=== PATIENT | female | born 1980 | race Caucasian/White ===

== ENCOUNTER → 2017-01-31 | Outpatient (CLI) | payer OTHER ==
[2017-01-31 07:41] LABS: ALT 32 U/L (9-52); AST 22 U/L (14-36); Alkaline Phosphatase 41 U/L (38-126); Anion Gap 11 mmol/L; Blood Urea Nitrogen 12 mg/dL (7-17); Calcium 9.2 mg/dL (8.4-10.2); Carbon Dioxide 25 mmol/L (22-30); Chloride 105 mmol/L (98-107); Cholesterol 174 mg/dL (<200); Creatine Kinase 106 U/L (30-135); Glucose 110 mg/dL (74-99); HDL Cholesterol 37 mg/dL (40-60); Non-African American GFR(MDRD) >60 (>60 ml/min/1.73 sqM); Potassium 4.4 mmol/L (3.5-5.1); Sodium 141 mmol/L (137-145); Total Bilirubin 0.7 mg/dL (0.2-1.3); Total Protein 7.3 g/dL (6.3-8.2); Triglycerides 93 mg/dL (<150)
[2017-01-31 08:51] LABS: Basophils # (A) 0.1 k/uL (0-0.2); Basophils % (A) 1 %; CH 28.9; CHCM 34.5; Eosinophils # (A) 0.1 k/uL (0-0.7); Eosinophils % (A) 2 %; HCT 37.6 % (34.0-46.0); HDW 2.67; HGB 13.3 gm/dL (11.4-16.0); Luc # (Auto) 0.16; Luc % (Auto) 3; Lymphocytes % (A) 16 %; MCH 29.7 pg (25.0-35.0); MCHC 35.3 g/dL (31.0-37.0); MCV 84.1 fL (80.0-100.0); Mean Platelet Volume 7.3; Monocytes # (A) 0.7 k/uL (0-1.0); Monocytes % (A) 11 %; Neutrophils # (A) 4.2 k/uL (1.3-7.7); Neutrophils % (A) 67 %; RBC 4.48 m/uL (3.80-5.40); RDW 13.3 % (11.5-15.5); WBC 6.3 k/uL (3.8-10.6); WBC (Perox) 5.16
[2017-01-31 09:37] LABS: C Reactive Protein 6.2 mg/L (<10.0)
[2017-01-31 10:07] LABS: Erythrocyte Sedimentation Rate 13 mm/hr (0-20)
[2017-01-31 10:51] LABS: Manual Review Performed
[2017-01-31 10:53] LABS: RBC Morphology Normal
== END ==
LOC: LABWHC1 07:06
PROVIDERS: ATTEND Internal Medicine
DX: D64.9 Anemia, unspecified (principal); E78.5 Hyperlipidemia, unspecified
CPT/HCPCS: 36415; 80053; 80061; 82550; 85025; 85652; 86140

== ENCOUNTER → 2017-02-14 | Outpatient (CLI) | payer OTHER ==
--- NOTE | 2017-02-14 11:21 | MM ---
Reason for exam: clinical finding. Baseline mammogram. History: Family history of breast cancer in paternal grandmother. Indicated problem(s): lump or thickening in both breasts. Physical Findings: Nurse did not find any significant physical abnormalities on exam. MG Diagnostic Mammo w CAD DOUGLAS Bilateral CC and MLO view(s) were taken. The breast tissue is heterogeneously dense. This may lower the sensitivity of mammography. No suspicious calcifications or masses. There is no discrete abnormality including area of concern. These results were verbally communicated with the patient and result sheet given to the patient on 02/14/17. ASSESSMENT: Benign, BI-RAD 2 RECOMMENDATION: Routine screening mammogram of both breasts at age 38. Back on schedule. Manage patient on a clinical basis.
== END | disposition home or self-care (01) ==
LOC: RADMAMWWP 10:03
PROVIDERS: ATTEND Internal Medicine
DX: N64.59 Other signs and symptoms in breast (principal)

== ENCOUNTER → 2018-03-04 | Outpatient (CLI) | payer OTHER ==
--- NOTE | 2018-03-04 09:49 | XR ---
EXAMINATION TYPE: XR foot complete LT DATE OF EXAM: 03/04/2018 COMPARISON: NONE HISTORY: Pain in the heel TECHNIQUE: Three views are submitted. FINDINGS: The osseous structures are . There is no acute fracture or dislocation. Arthropathy of the first MT P joint. Hypertrophic change and narrowing of the space noted. No sizable calcaneal spur. IMPRESSION: 1. No acute osseous abnormality.
== END | disposition home or self-care (01) ==
LOC: RADXRMAIN 09:11
PROVIDERS: ATTEND Internal Medicine
DX: M72.2 Plantar fascial fibromatosis (principal)

== ENCOUNTER → 2018-06-24 | Outpatient (CLI) | payer OTHER ==
[2018-06-24 09:11] LABS: Basophils % (A) 1 %; Eosinophils # (A) 0.1 k/uL (0-0.7); Eosinophils % (A) 3 %; HCT 40.6 % (34.0-46.0); Lymphocytes # (A) 0.8 k/uL (1.0-4.8); Lymphocytes % (A) 15 %; MCH 27.7 pg (25.0-35.0); MCHC 31.9 g/dL (31.0-37.0); MCV 86.8 fL (80.0-100.0); Mean Platelet Volume 6.5; Monocytes # (A) 0.3 k/uL (0-1.0); Monocytes % (A) 6 %; Neutrophils # (A) 3.8 k/uL (1.3-7.7); Neutrophils % (A) 72 %; Platelet Count 245 k/uL (150-450); RBC 4.68 m/uL (3.80-5.40); WBC 5.2 k/uL (3.8-10.6)
[2018-06-24 09:32] LABS: ALT 54 U/L (9-52); AST 31 U/L (14-36); Albumin 4.1 g/dL (3.5-5.0); Alkaline Phosphatase 38 U/L (38-126); Anion Gap 9 mmol/L; Blood Urea Nitrogen 13 mg/dL (7-17); C Reactive Protein 5.7 mg/L (<10.0); Carbon Dioxide 26 mmol/L (22-30); Chloride 105 mmol/L (98-107); Cholesterol 192 mg/dL (<200); Creatine Kinase 86 U/L (30-135); Glucose 109 mg/dL (74-99); HDL Cholesterol 38 mg/dL (40-60); LDL Cholesterol,Calculated 138 mg/dL (0-99); Phosphorus 2.8 mg/dL (2.5-4.5); Potassium 4.5 mmol/L (3.5-5.1); Sodium 140 mmol/L (137-145); Total Bilirubin 0.5 mg/dL (0.2-1.3); Total Protein 6.9 g/dL (6.3-8.2); Triglycerides 78 mg/dL (<150); Uric Acid 4.9 mg/dL (3.7-7.4)
[2018-06-24 12:34] LABS: Erythrocyte Sedimentation Rate 12 mm/hr (0-20)
[2018-06-24 17:18] LABS: Iron Saturation 22.22 (12.00-45.00)
[2018-06-24 17:29] LABS: Vitamin D 25 Hydroxy 40.2 ng/mL (30.0-100.0)
[2018-06-24 18:34] LABS: Hemoglobin A1C 5.4 % (4.0-6.0)
== END | disposition home or self-care (01) ==
LOC: LABWHC1 08:16
PROVIDERS: ATTEND Internal Medicine
DX: L60.3 Nail dystrophy (principal)
CPT/HCPCS: 36415; 80053; 80061; 82306; 82550; 82728; 83036; 83540; 83550; 83735; 84100; 84550; 84630; 85025; 85652; 86140

== ENCOUNTER → 2018-07-08 | Outpatient (CLI) | payer OTHER ==
--- NOTE | 2018-07-08 12:27 | XR ---
EXAMINATION TYPE: XR chest 2V DATE OF EXAM: 07/08/2018 COMPARISON: NONE TECHNIQUE: PA and lateral views submitted. HISTORY: Cough FINDINGS: The lungs are clear and there is no pneumothorax, pleural effusion, or focal pneumonia. IMPRESSION: 1. No acute process.
== END | disposition home or self-care (01) ==
LOC: RADXRMAIN 11:56
PROVIDERS: ATTEND Internal Medicine
DX: R05 Cough (principal)
CPT/HCPCS: 71046

== ENCOUNTER → 2018-09-16 | Outpatient (CLI) | payer OTHER ==
[2018-09-16 16:12] LABS: ALT 39 U/L (8-44); AST 29 U/L (13-35); Cholesterol 119 mg/dL (0-200); Creatine Kinase 132 U/L (26-186); Triglycerides <50.0 mg/dL (0.0-149.0); VLDL Calculation 9.98 mg/dL (5.00-40.00)
== END ==
LOC: LABWHC1 08:08
PROVIDERS: ATTEND Internal Medicine
DX: E78.5 Hyperlipidemia, unspecified (principal)
CPT/HCPCS: 36415; 80061; 82550; 84450; 84460

== ENCOUNTER → 2019-03-03 | Outpatient (CLI) | payer OTHER ==
[2019-03-03 07:56] LABS: Basophils % (A) 1 %; Eosinophils # (A) 0.2 k/uL (0-0.7); Eosinophils % (A) 4 %; HCT 39.5 % (34.0-46.0); HGB 13.3 gm/dL (11.4-16.0); Lymphocytes # (A) 0.9 k/uL (1.0-4.8); Lymphocytes % (A) 17 %; MCH 29.4 pg (25.0-35.0); MCHC 33.6 g/dL (31.0-37.0); MCV 87.4 fL (80.0-100.0); Mean Platelet Volume 7.1; Monocytes # (A) 0.3 k/uL (0-1.0); Monocytes % (A) 5 %; Neutrophils # (A) 3.6 k/uL (1.3-7.7); Neutrophils % (A) 69 %; Platelet Count 239 k/uL (150-450); RBC 4.52 m/uL (3.80-5.40); WBC 5.3 k/uL (3.8-10.6)
[2019-03-03 12:11] LABS: Erythrocyte Sedimentation Rate 14 mm/hr (0-20)
[2019-03-03 17:50] LABS: ALT 33 U/L (8-44); AST 24 U/L (13-35); Albumin/Globulin Ratio 2.32 (1.60-3.17); Alkaline Phosphatase 45 U/L (41-126); C Reactive Protein <0.4 mg/dL (0.0-0.8); Calcium 8.8 mg/dL (8.7-10.3); Carbon Dioxide 23.6 mmol/L (21.6-31.8); Chloride 107 mmol/L (96-109); Cholesterol 146 mg/dL (0-200); Creatine Kinase 126 U/L (26-186); Globulin 1.9 g/dL (1.6-3.3); Glucose 113 mg/dL (70-110); LDL Cholesterol,Calculated 88.4 mg/dL (0.0-131.0); Sodium 138 mmol/L (135-145); Total Bilirubin 0.5 mg/dL (0.3-1.2); Total Protein 6.3 g/dL (6.2-8.2)
== END | disposition home or self-care (01) ==
LOC: LABWHC1 07:21
PROVIDERS: ATTEND Internal Medicine
DX: E55.9 Vitamin D deficiency, unspecified (principal); E78.5 Hyperlipidemia, unspecified; E03.9 Hypothyroidism, unspecified
CPT/HCPCS: 36415; 80053; 80061; 82306; 82550; 84443; 85025; 85652; 86140

== ENCOUNTER → 2019-04-09 | Outpatient (CLI) | payer OTHER ==
--- NOTE | 2019-04-10 10:35 | MM ---
Reason for exam: screening (asymptomatic). Last mammogram was performed 2 years and 2 months ago. History: Patient is nulliparous. Family history of breast cancer in paternal grandmother. Physical Findings: A clinical breast exam by your physician is recommended on an annual basis and results should be correlated with mammographic findings. MG 3D Screening Mammo W/Cad Bilateral CC and MLO view(s) were taken. Prior study comparison: February 14, 2017, bilateral MG diagnostic mammo w CAD DOUGLAS. The breast tissue is heterogeneously dense. This may lower the sensitivity of mammography. Finding: There is a 8 mm obscured oval mass in the posterior middle position of the right breast on CC 44/62 and MLO 22/66. ASSESSMENT: Incomplete: need additional imaging evaluation, BI-RAD 0 RECOMMENDATION: Ultrasound of the right breast. [facility] will attempt to contact patient to return for ultrasound.
== END | disposition home or self-care (01) ==
LOC: RADMAMWWP 09:01
PROVIDERS: ATTEND Internal Medicine
DX: Z12.31 Encounter for screening mammogram for malignant neoplasm of breast (principal); Z80.3 Family history of malignant neoplasm of breast
CPT/HCPCS: 77063; 77067

== ENCOUNTER → 2019-08-04 | Outpatient (CLI) | payer OTHER ==
--- NOTE | 2019-08-04 11:42 | XR ---
EXAMINATION TYPE: XR knee complete LT DATE OF EXAM: 08/04/2019 CLINICAL HISTORY: Chronic medial pain. TECHNIQUE: Three views of the left knee are obtained. COMPARISON: None. FINDINGS: There is no acute fracture/dislocation evident in left knee. Axpn-kg-axxzadiw medial zara rtment narrowing with more mild narrowing patellofemoral and lateral tibiofemoral compartments. No s ignificant spurring. Clothing material overlies distal femoral diaphysis. IMPRESSION: As above
--- NOTE | 2019-08-04 11:48 | XR ---
EXAMINATION TYPE: XR tibia fibula LT DATE OF EXAM: 08/04/2019 CLINICAL HISTORY: Chronic pain. TECHNIQUE: Two views of the left leg are obtained. COMPARISON: C in the left knee x-ray.. FINDINGS: There is no acute fracture or dislocation seen in the left tibia or fibula. The left ankl e joint appears within normal limits. Overlying sock material at level of ankle is noted. IMPRESSION: As above.
== END | disposition home or self-care (01) ==
LOC: RADXRMAIN 10:28
PROVIDERS: ATTEND Internal Medicine
DX: M25.862 Other specified joint disorders, left knee (principal)

== ENCOUNTER → 2020-06-30 | Outpatient (CLI) | payer OTHER ==
[2020-06-30 08:22] LABS: Basophils % (A) 0 %; Eosinophils # (A) 0.2 k/uL (0-0.7); Eosinophils % (A) 3 %; HCT 40.7 % (34.0-46.0); HGB 13.3 gm/dL (11.4-16.0); Lymphocytes # (A) 0.9 k/uL (1.0-4.8); Lymphocytes % (A) 17 %; MCH 28.6 pg (25.0-35.0); MCHC 32.7 g/dL (31.0-37.0); MCV 87.5 fL (80.0-100.0); Mean Platelet Volume 7.2; Monocytes # (A) 0.4 k/uL (0-1.0); Monocytes % (A) 7 %; Neutrophils # (A) 3.9 k/uL (1.3-7.7); Neutrophils % (A) 70 %; Platelet Count 245 k/uL (150-450); RBC 4.64 m/uL (3.80-5.40); RDW 12.7 % (11.5-15.5); WBC 5.6 k/uL (3.8-10.6)
[2020-06-30 17:30] LABS: African American GFR (CKD) 131.2 (60.0-200.0); Albumin 4.2 g/dL (3.80-4.90); Albumin/Globulin Ratio 2.1 (1.60-3.17); Anion Gap 8.5 mmol/L (4.00-12.00); Calcium 8.8 mg/dL (8.7-10.3); Carbon Dioxide 24.5 mmol/L (21.6-31.8); Chol/HDL Ratio 3.68; LDL Cholesterol,Calculated 89.8 mg/dL (0.0-131.0); Non-African American GFR(CKD) 113.2 (60.0-200.0); Potassium 4.2 mmol/L (3.5-5.5); Total Bilirubin 0.3 mg/dL (0.2-1.2); Total Protein 6.2 g/dL (6.2-8.2); VLDL Calculation 17.2 mg/dL (5.00-40.00)
[2020-06-30 18:17] LABS: Erythrocyte Sedimentation Rate 9 mm/Hr (0-20)
== END | disposition home or self-care (01) ==
LOC: LABWHC1 07:12
PROVIDERS: ATTEND Internal Medicine
DX: Z00.00 Encounter for general adult medical examination without abnormal findings (principal); D64.9 Anemia, unspecified; E87.8 Other disorders of electrolyte and fluid balance, not elsewhere classified; E78.5 Hyperlipidemia, unspecified
CPT/HCPCS: 36415; 80053; 80061; 82550; 85025; 85652

== ENCOUNTER → 2020-08-02 | Outpatient (CLI) | payer OTHER ==
--- NOTE | 2020-08-03 07:30 | MM ---
Reason for exam: additional evaluation requested from prior study. Last mammogram was performed 1 year and 4 months ago. History: Patient is nulliparous. Family history of breast cancer in paternal grandmother. Took hormonal contraceptives for 2 years. Physical Findings: Nurse did not find any significant physical abnormalities on exam. MG Diagnostic Mammo w CAD DOUGLAS Bilateral CC and MLO view(s) were taken. Prior study comparison: April 09, 2019, bilateral MG 3d screening mammo w/cad. February 14, 2017, bilateral MG diagnostic mammo w CAD DOUGLAS. The breast tissue is heterogeneously dense. This may lower the sensitivity of mammography. No significant new findings when compared with previous films. These results were verbally communicated with the patient and result sheet given to the patient on 08/02/20. ASSESSMENT: Benign, BI-RAD 2 RECOMMENDATION: Routine screening mammogram of both breasts in 1 year.
== END | disposition home or self-care (01) ==
LOC: RADMAMWWP 14:21
PROVIDERS: ATTEND Internal Medicine
DX: N60.11 Diffuse cystic mastopathy of right breast (principal); N60.12 Diffuse cystic mastopathy of left breast; R92.8 Other abnormal and inconclusive findings on diagnostic imaging of breast
CPT/HCPCS: 77066

== ENCOUNTER → 2020-08-16 | Outpatient (CLI) | payer OTHER ==
[2020-08-16 15:03] LABS: Albumin 4.2 g/dL (3.80-4.90); Bilirubin, Conjugated 0.2 mg/dL (0.20-0.40); Bilirubin,Unconjugated 0.4 mg/dL; Globulin 2.1 g/dL (1.6-3.3); Total Bilirubin 0.6 mg/dL (0.3-1.2); Total Protein 6.3 g/dL (6.2-8.2)
== END | disposition home or self-care (01) ==
LOC: LABWHC1 07:20
PROVIDERS: ATTEND Internal Medicine
DX: R73.9 Hyperglycemia, unspecified (principal); R94.5 Abnormal results of liver function studies
CPT/HCPCS: 36415; 80076; 82947

== ENCOUNTER → 2020-10-25 | Outpatient (CLI) | payer OTHER ==
[2020-10-25 11:24] LABS: Basophils % (A) 1 %; Eosinophils # (A) 0.2 k/uL (0-0.7); Eosinophils % (A) 3 %; HCT 40.7 % (34.0-46.0); HGB 13.4 gm/dL (11.4-16.0); Lymphocytes # (A) 0.9 k/uL (1.0-4.8); Lymphocytes % (A) 19 %; MCHC 32.9 g/dL (31.0-37.0); MCV 87.9 fL (80.0-100.0); Mean Platelet Volume 7.3; Monocytes # (A) 0.4 k/uL (0-1.0); Monocytes % (A) 8 %; Neutrophils # (A) 3.3 k/uL (1.3-7.7); Neutrophils % (A) 66 %; Platelet Count 239 k/uL (150-450); RBC 4.62 m/uL (3.80-5.40); RDW 12.8 % (11.5-15.5)
[2020-10-25 11:45] LABS: ALT 58 U/L (4-34); AST 42 U/L (14-36); African American GFR (CKD) >90 (>60 ml/min/1.73 sqM); Anion Gap 4 mmol/L; Blood Urea Nitrogen 13 mg/dL (7-17); Carbon Dioxide 29 mmol/L (22-30); Chloride 103 mmol/L (98-107); Creatine Kinase 181 U/L (30-135); Glucose 102 mg/dL (74-99); Non-African American GFR(CKD) >90 (>60 ml/min/1.73 sqM); Potassium 3.8 mmol/L (3.5-5.1); Sodium 136 mmol/L (137-145)
--- NOTE | 2020-10-25 12:30 | XR ---
EXAMINATION TYPE: XR wrist complete BILATERAL, XR hand complete bilateral DATE OF EXAM: 10/25/2020 COMPARISON: NONE HISTORY: 39-year-old female M10, inflammatory arthritis, chronic bilateral hand and wrist pain. TECHNIQUE: 4 views each wrist and 3 views each hand FINDINGS: Radiocarpal and distal radioulnar joint as well as the midcarpal compartment appear intact. Joint spa tejas throughout the fingers are also maintained. No marginal erosions, soft tissue calcifications. No periostitis or osteolysis. No acute fracture, subluxation, dislocation. On the right, there is bony hypertrophy along the radial aspect of the first metacarpal head. Mild de generative spurring is noted at the triscaphe joint. IMPRESSION: 1. No specific radiographic findings of inflammatory arthropathy within either hand or wrist at this time. 2. Suspect prior capsular/RCL injury at the right first MCP joint. Mild osteoarthritic change at the right triscaphe joint.
[2020-10-25 14:43] LABS: Erythrocyte Sedimentation Rate 11 mm/hr (0-20)
[2020-10-25 19:03] LABS: DNA Double-Stranded NEGATIVE (NEGATIVE)
== END | disposition home or self-care (01) ==
LOC: RADXRMAIN 10:25
PROVIDERS: ATTEND Internal Medicine
DX: M19.031 Primary osteoarthritis, right wrist (principal); M10.9 Gout, unspecified; M19.90 Unspecified osteoarthritis, unspecified site
CPT/HCPCS: 80048; 82550; 84450; 84460; 84550; 85025; 85652; 86038; 86225

== ENCOUNTER → 2021-01-31 | Outpatient (CLI) | payer OTHER ==
[2021-01-31 22:51] LABS: ALT 50 U/L (8-44); AST 29 U/L (13-35); Alkaline Phosphatase 54 U/L (41-126); Bilirubin, Conjugated <0.20 mg/dL (0.20-0.40); Total Bilirubin 0.4 mg/dL (0.2-1.2); Total Protein 6.6 g/dL (6.2-8.2)
== END | disposition home or self-care (01) ==
LOC: LABWHC1 11:20
PROVIDERS: ATTEND Internal Medicine
DX: K75.9 Inflammatory liver disease, unspecified (principal)
CPT/HCPCS: 36415; 80076

== ENCOUNTER → 2021-07-13 | Outpatient (CLI) | payer OTHER ==
[2021-07-13 10:36] LABS: Basophils # (A) 0.03 X 10*3/uL (0.00-0.10); Basophils % (A) 0.5 %; Eosinophils # (A) 0.14 X 10*3/uL (0.04-0.35); Eosinophils % (A) 2.5 %; HCT 38.8 % (37.2-46.3); HGB 12.7 g/dL (12.0-15.0); Lymphocytes # (A) 0.91 X 10*3/uL (0.90-5.00); Lymphocytes % (A) 16.3 %; MCH 28.7 pg (27.0-32.0); MCHC 32.7 g/dL (32.0-37.0); MCV 87.6 fL (80.0-97.0); Mean Platelet Volume 9.9 fL (9.5-12.2); Monocytes # (A) 0.51 X 10*3/uL (0.20-1.00); Monocytes % (A) 9.1 %; Neutrophils # (A) 3.97 X 10*3/uL (1.80-7.70); Neutrophils % (A) 71.2 %; Platelet Count 246 X 10*3/uL (140-440); RBC 4.43 X 10*6/uL (4.10-5.20); WBC 5.58 X 10*3/uL (4.50-10.00)
[2021-07-13 14:47] LABS: Erythrocyte Sedimentation Rate 13 mm/Hr (0-20)
[2021-07-14 03:00] LABS: ALT 42 U/L (8-44); AST 30 U/L (13-35); African American GFR (CKD) 130.3 (60.0-200.0); Albumin/Globulin Ratio 2.32 (1.60-3.17); Alkaline Phosphatase 53 U/L (41-126); BUN/Creat Ratio 18.33 Ratio (12.00-20.00); C Reactive Protein <0.4 mg/dL (0.0-0.8); Calcium 8.9 mg/dL (8.7-10.3); Carbon Dioxide 25.2 mmol/L (21.6-31.8); Chloride 105 mmol/L (96-109); Chol/HDL Ratio 3.33; Cholesterol 133 mg/dL (0-200); Creatine Kinase 129 U/L (26-186); Globulin 1.9 g/dL (1.6-3.3); Glucose 107 mg/dL (70-110); LDL Cholesterol,Calculated 78.2 mg/dL (0.0-131.0); Non-African American GFR(CKD) 112.4 (60.0-200.0); Potassium 4.1 mmol/L (3.5-5.5); Sodium 139 mmol/L (135-145); Total Bilirubin 0.3 mg/dL (0.3-1.2); Total Protein 6.3 g/dL (6.2-8.2)
== END | disposition home or self-care (01) ==
LOC: LABWHC1 07:10
PROVIDERS: ATTEND Internal Medicine
DX: D64.9 Anemia, unspecified (principal); I10 Essential (primary) hypertension; E78.5 Hyperlipidemia, unspecified; E55.9 Vitamin D deficiency, unspecified
CPT/HCPCS: 36415; 80053; 80061; 82306; 82550; 85025; 85652; 86140

== ENCOUNTER → 2021-08-15 | Outpatient (CLI) | payer OTHER ==
--- NOTE | 2021-08-15 15:50 | USB ---
EXAMINATION TYPE: US breast limited LT DATE OF EXAM: 08/15/2021 COMPARISON: Mammogram same date CLINICAL HISTORY: N64.4 pain/mastodynia. Findings: Left breast was scanned with ultrasound from 12:00 to 3:00 and in the retroareolar region and axilla. 2 tiny simple cysts are incidentally noted. No definite correlate for left upper outer pain. IMPRESSION: No sonographic correlate for left upper outer pain. Clinical follow-up is recommended. BI-RADS 2, benign. Bilateral screening mammogram is recommended in one year.
--- NOTE | 2021-08-16 08:21 | MM ---
Reason for exam: additional evaluation requested from prior study. Last mammogram was performed 1 year ago. History: Patient is nulliparous. Family history of breast cancer in paternal grandmother at age 60. Took hormonal contraceptives for 2 years. Physical Findings: Nurse did not find any significant physical abnormalities on exam. MG Diagnostic Mammo w CAD DOUGLAS Bilateral CC and MLO view(s) were taken. Prior study comparison: August 02, 2020, bilateral MG diagnostic mammo w CAD D[facility]. April 09, 2019, bilateral MG 3d screening mammo w/cad. There are scattered fibroglandular densities. No mammography correlate left upper outer quadrant pain, ultrasound recommended. These results were verbally communicated with the patient and result sheet given to the patient on 08/15/21. ASSESSMENT: Incomplete: need additional imaging evaluation, BI-RAD 0 RECOMMENDATION: Ultrasound of the left breast.
== END | disposition home or self-care (01) ==
LOC: RADMAMWWP 14:46
PROVIDERS: ATTEND Internal Medicine
DX: N64.4 Mastodynia (principal)
CPT/HCPCS: 77066

== ENCOUNTER → 2022-07-17 | Outpatient (CLI) | payer OTHER ==
[2022-07-17 11:51] LABS: Basophils # (A) 0.03 X 10*3/uL (0.00-0.10); Basophils % (A) 0.6 %; Eosinophils # (A) 0.17 X 10*3/uL (0.04-0.35); Eosinophils % (A) 3.3 %; HCT 39.9 % (37.2-46.3); HGB 13.1 g/dL (12.0-15.0); Immature Grans, Automated 0.2 %; Lymphocytes # (A) 0.97 X 10*3/uL (0.90-5.00); Lymphocytes % (A) 18.9 %; MCHC 32.8 g/dL (32.0-37.0); MCV 88.3 fL (80.0-97.0); Mean Platelet Volume 9.7 fL (9.5-12.2); Monocytes # (A) 0.45 X 10*3/uL (0.20-1.00); Monocytes % (A) 8.8 %; NRBC Per 100 WBC 0 /100 WBCS (0.0-0.0); Neutrophils # (A) 3.49 X 10*3/uL (1.80-7.70); Neutrophils % (A) 68.2 %; Platelet Count 232 X 10*3/uL (140-440); RBC 4.52 X 10*6/uL (4.10-5.20); RDW 12.4 % (11.5-14.5); WBC 5.12 X 10*3/uL (4.50-10.00)
[2022-07-17 12:00] LABS: ALT 46 U/L (8-44); AST 31 U/L (13-35); Albumin 4.3 g/dL (3.8-4.9); Albumin/Globulin Ratio 1.79 (1.60-3.17); Alkaline Phosphatase 50 U/L (41-126); Blood Urea Nitrogen 11.2 mg/dL (9.0-27.0); C Reactive Protein <0.30 mg/dL (0.00-0.80); Chloride 103 mmol/L (96-109); Creatine Kinase 130 U/L (26-186); Globulin 2.4 g/dL (1.6-3.3); Glucose 115 mg/dL (70-110); Magnesium 2.1 mg/dL (1.5-2.4); Non-African American GFR(CKD) 106.1 (60.0-200.0); Phosphorus 2.6 mg/dL (2.4-5.1); Sodium 139 mmol/L (135-145); Total Protein 6.7 g/dL (6.2-8.2)
[2022-07-17 12:17] LABS: Chol/HDL Ratio 3.85 Ratio; LDL Cholesterol,Calculated 82.9 mg/dL (0.0-131.0)
[2022-07-17 14:54] LABS: Erythrocyte Sedimentation Rate 6 mm/Hr (0-20)
== END | disposition home or self-care (01) ==
LOC: LABWHC1 07:45
PROVIDERS: ATTEND Internal Medicine
DX: Z00.00 Encounter for general adult medical examination without abnormal findings (principal); D64.9 Anemia, unspecified; E78.5 Hyperlipidemia, unspecified; E03.9 Hypothyroidism, unspecified; E55.9 Vitamin D deficiency, unspecified
CPT/HCPCS: 36415; 80053; 80061; 82306; 82550; 83735; 84100; 84443; 85025; 85652; 86140

== ENCOUNTER → 2022-09-06 | Outpatient (CLI) | payer OTHER ==
--- NOTE | 2022-09-07 15:39 | MM ---
Reason for Exam: Screening (asymptomatic). Last mammogram was performed 1 year(s) and 1 month(s) ago. Patient History: Menarche at age 11. Patient has no children. Patient used Hormonal Contraceptives for 2 years. Paternal grandmother had breast cancer, age 60. Risk Values: Yareli 5 year model risk: 0.8%. NCI Lifetime model risk: 10.8%. Prior Study Comparison: 04/09/2019 Bilateral Screening Mammogram, [facility]. 08/02/2020 Bilateral Diagnostic Mammogram, [facility]. 08/15/2021 Bilateral Diagnostic Mammogram, [facility]. Tissue Density: The breast tissue is heterogeneously dense. This may lower the sensitivity of mammography. Findings: Analyzed By CAD. Parenchymal pattern is in a complex pattern but stable over the interval. Focal asymmetries are within the right breast. No significant interval change is evident. No suspicious groups of microcalcifications, spiculated or lobular masses, architectural distortion or other secondary signs of malignancy are mammographically apparent. Overall Assessment: Benign, BI-RAD 2 Management: Screening Mammogram of both breasts in 1 year. A negative mammogram report should not preclude additional follow up of suspicious palpable abnormalities. Patient should continue monthly self breast exam. A clinical breast exam by your physician is recommended on an annual basis and results should be correlated with mammographic findings. Electronically signed and approved by: Sean Kennedy D.O. Radiologis
== END | disposition home or self-care (01) ==
LOC: RADMAMWWP 15:26
PROVIDERS: ATTEND Internal Medicine
DX: Z12.31 Encounter for screening mammogram for malignant neoplasm of breast (principal)
CPT/HCPCS: 77067

== ENCOUNTER → 2022-12-01 | Outpatient (CLI) | payer OTHER ==
--- NOTE | 2022-12-01 09:18 | XR ---
EXAMINATION TYPE: XR knee complete LT DATE OF EXAM: 12/01/2022 CLINICAL HISTORY: pain TECHNIQUE: Three views of the left knee are obtained. COMPARISON: None. FINDINGS: There is no acute fracture/dislocation. The tri-compartment joint spaces appear within no rmal limits. The overlying soft tissue appears unremarkable. IMPRESSION: There is no acute fracture or dislocation ICD 10 NO FRACTURE, INITIAL EVALUATION
--- NOTE | 2022-12-01 09:26 | XR ---
EXAMINATION TYPE: XR Hip Complete LT DATE OF EXAM: 12/01/2022 CLINICAL HISTORY: pain TECHNIQUE: AP and frogleg views of the left hip are obtained. COMPARISON: None. FINDINGS: There is no acute fracture/dislocation evident. The joint space appears within normal li mits. The overlying soft tissue appears unremarkable. IMPRESSION: 1. There is no acute fracture or dislocation.ICD 10 NO FRACTURE, INITIAL EVALUATION
[2022-12-01 14:38] LABS: Basophils # (A) 0.03 X 10*3/uL (0.00-0.10); Basophils % (A) 0.6 %; Eosinophils # (A) 0.17 X 10*3/uL (0.04-0.35); Eosinophils % (A) 3.1 %; HCT 40.6 % (37.2-46.3); HGB 13.4 g/dL (12.0-15.0); Immature Grans, Automated 0.2 %; Lymphocytes # (A) 0.98 X 10*3/uL (0.90-5.00); MCH 28.9 pg (27.0-32.0); MCV 87.7 fL (80.0-97.0); Mean Platelet Volume 9.8 fL (9.5-12.2); Monocytes # (A) 0.53 X 10*3/uL (0.20-1.00); Monocytes % (A) 9.8 %; NRBC Per 100 WBC 0 /100 WBCS (0.0-0.0); Neutrophils # (A) 3.71 X 10*3/uL (1.80-7.70); Neutrophils % (A) 68.3 %; Platelet Count 253 X 10*3/uL (140-440); RBC 4.63 X 10*6/uL (4.10-5.20); RDW 12.5 % (11.5-14.5); WBC 5.43 X 10*3/uL (4.50-10.00)
[2022-12-01 14:55] LABS: ALT 57 U/L (8-44); AST 30 U/L (13-35); Albumin 4.4 g/dL (3.8-4.9); Albumin/Globulin Ratio 2.08 (1.60-3.17); Alkaline Phosphatase 52 U/L (41-126); Calcium 9.1 mg/dL (8.7-10.3); Carbon Dioxide 24.9 mmol/L (20.0-27.5); Chloride 104 mmol/L (96-109); Creatine Kinase 121 U/L (26-186); Globulin 2.1 g/dL (1.6-3.3); Glucose 110 mg/dL (70-110); Magnesium 2.1 mg/dL (1.5-2.4); Non-African American GFR(CKD) 112.2 (60.0-200.0); Phosphorus 3.1 mg/dL (2.4-5.1); Sodium 140 mmol/L (135-145); Total Protein 6.5 g/dL (6.2-8.2); Uric Acid 4.2 mg/dL (2.9-7.7)
[2022-12-01 15:04] LABS: C Reactive Protein <0.30 mg/dL (0.00-0.80); Chol/HDL Ratio 4.16 Ratio; LDL Cholesterol,Calculated 94.7 mg/dL (0.0-131.0); Rheumatoid Factor, Qnt <10 IU/mL (0-15); VLDL Calculation 17.74 mg/dL (5.00-40.00)
[2022-12-01 16:33] LABS: Erythrocyte Sedimentation Rate 15 mm/Hr (0-20)
== END | disposition home or self-care (01) ==
LOC: LABWHC1 08:06
PROVIDERS: ATTEND Internal Medicine
DX: Z00.00 Encounter for general adult medical examination without abnormal findings (principal); M25.569 Pain in unspecified knee; M25.559 Pain in unspecified hip; E55.9 Vitamin D deficiency, unspecified; D64.9 Anemia, unspecified; M10.9 Gout, unspecified; E78.5 Hyperlipidemia, unspecified; M81.0 Age-related osteoporosis without current pathological fracture; M06.4 Inflammatory polyarthropathy
CPT/HCPCS: 36415; 73502; 80053; 80061; 82306; 82550; 83735; 84100; 84443; 84550; 85025; 85652; 86038; 86140; 86200; 86225; 86431

== ENCOUNTER → 2023-02-26 | Outpatient (CLI) | payer OTHER ==
--- NOTE | 2023-02-26 10:14 | XR ---
EXAMINATION TYPE: XR chest 2V DATE OF EXAM: 02/26/2023 COMPARISON: NONE TECHNIQUE: PA and lateral views submitted. HISTORY: Cough FINDINGS: The lungs are clear and there is no pneumothorax, pleural effusion, or focal pneumonia. Heart size normal and no overt failure. Osseous structures intact. IMPRESSION: 1. No acute process.
== END | disposition home or self-care (01) ==
LOC: RADXRMAIN 09:55
PROVIDERS: ATTEND Internal Medicine
DX: R05.9 Cough, unspecified (principal)
CPT/HCPCS: 71046

== ENCOUNTER → 2023-09-19 | Outpatient (CLI) | payer OTHER ==
--- NOTE | 2023-09-24 01:13 | MM ---
Reason for Exam: Screening (asymptomatic). Last screening mammogram was performed 12 month(s) ago. Patient History: Menarche at age 11. Patient has no children. Patient used Hormonal Contraceptives for 2 years. Paternal grandmother had breast cancer, age 60. Paternal aunt had breast cancer at or over age 50. Risk Values: Yareli 5 year model risk: 0.9%. NCI Lifetime model risk: 10.7%. Prior Study Comparison: 02/14/2017 Bilateral Diagnostic Mammogram, [facility]. 04/09/2019 Bilateral Screening Mammogram, [facility]. 08/02/2020 Bilateral Diagnostic Mammogram, [facility]. 08/15/2021 Bilateral Diagnostic Mammogram, [facility]. 09/06/2022 Bilateral MG screening mammo w CAD, [facility]. Tissue Density: The breast tissue is heterogeneously dense. This may lower the sensitivity of mammography. Findings: Analyzed By CAD. Unchanged asymmetric density inferior right MLO view. However, an area 1.4 cm nodularity posterior upper outer quadrant right breast appears to have increased in size. Further evaluation recommended. Otherwise, no significant change. Overall Assessment: Incomplete: need additional imaging evaluation, BI-RAD 0 Management: Special View Mammogram of the right breast. Diagnostic Breast Ultrasound of the right breast. Additional views to include spot 3-D CC, spot 3-D MLO, and 3-D lateral views. Subsequent targeted right breast ultrasound upper quadrant. [facility] will attempt to contact patient to return for supplemental views and ultrasound if indicated. Electronically signed and approved by: Becca Spain M.D. Radiologist
== END | disposition home or self-care (01) ==
LOC: RADMAMWWP 12:41
PROVIDERS: ATTEND Internal Medicine
DX: Z12.31 Encounter for screening mammogram for malignant neoplasm of breast (principal); Z80.3 Family history of malignant neoplasm of breast
CPT/HCPCS: 77067

== ENCOUNTER → 2023-10-03 | Outpatient (CLI) | payer OTHER ==
--- NOTE | 2023-10-03 11:46 | USB ---
Reason for Exam: Additional evaluation requested from abnormal screening. Patient History: Menarche at age 11. Patient has no children. Patient used Hormonal Contraceptives for 2 years. Paternal grandmother had breast cancer, age 60. Paternal aunt had breast cancer at or over age 50. Risk Values: Yareli 5 year model risk: 0.9%. NCI Lifetime model risk: 10.7%. Technique: Method: Targeted. Prior Study Comparison: 08/15/2021 Bilateral Diagnostic Mammogram, [facility]. 09/06/2022 Bilateral MG screening mammo w CAD, [facility]. 09/19/2023 Bilateral MG screening mammo w CAD, [facility]. Findings: The upper outer quadrant of the right breast, the axilla of the right breast and the retroareolar of the right breast were scanned. At the 10:00 position there is an anechoic structure with good through transmission measuring 1.2 x 0.9 x 1.1 cm compatible with a cyst. This area appears to correlate with the mammographic findings. Short-term confirmation of stability is recommended. Small unremarkable lymph nodes in the right axilla. Overall Assessment: Probably benign, BI-RAD 3 Management: Diagnostic Mammogram of the right breast in 6 months. Diagnostic Breast Ultrasound of the right breast in 6 months. A clinical breast exam by your physician is recommended on an annual basis and results should be correlated with mammographic findings. This exam should not preclude additional follow-up of suspicious palpable abnormalities. Results were given to the patient verbally at the time of exam. Electronically signed and approved by: Sean Kennedy D.O. Radiologis
--- NOTE | 2023-10-03 15:27 | MM ---
Reason for Exam: Additional evaluation requested from abnormal screening. Last screening mammogram was performed less than 1 month ago. Patient History: Menarche at age 11. Patient has no children. Patient used Hormonal Contraceptives for 2 years. Paternal grandmother had breast cancer, age 60. Paternal aunt had breast cancer at or over age 50. Risk Values: Yareli 5 year model risk: 0.9%. NCI Lifetime model risk: 10.7%. Prior Study Comparison: 08/02/2020 Bilateral Diagnostic Mammogram, [facility]. 09/06/2022 Bilateral MG screening mammo w CAD, [facility]. 09/19/2023 Bilateral MG screening mammo w CAD, [facility]. Tissue Density: Right: The breast tissue is heterogeneously dense. This may lower the sensitivity of mammography. Findings: Analyzed By CAD. Pattern appears stable. There is some focal asymmetry in the upper outer right breast. Ultrasound is recommended for additional evaluation. Left breast appears stable. No suspicious groups of microcalcifications, spiculated or lobular masses, architectural distortion or other secondary signs of malignancy are mammographically apparent. Overall Assessment: Incomplete: need additional imaging evaluation, BI-RAD 0 Management: Diagnostic Breast Ultrasound of the right breast. A negative mammogram report should not preclude additional follow up of suspicious palpable abnormalities. Patient should continue monthly self breast exam. A clinical breast exam by your physician is recommended on an annual basis and results should be correlated with mammographic findings. Electronically signed and approved by: eSan Kennedy D.O. Radiologis
== END | disposition home or self-care (01) ==
LOC: RADMAMWWP 10:06
PROVIDERS: ATTEND Internal Medicine
DX: R92.331 Mammographic heterogeneous density, right breast (principal); Z78.0 Asymptomatic menopausal state; Z80.3 Family history of malignant neoplasm of breast; Z92.0 Personal history of contraception
CPT/HCPCS: 77061; 77065

== ENCOUNTER → 2023-11-14 | Outpatient (CLI) | payer OTHER ==
[2023-11-14 15:32] LABS: Basophils # (A) 0.05 X 10*3/uL (0.00-0.10); Basophils % (A) 0.8 %; Eosinophils # (A) 0.17 X 10*3/uL (0.04-0.35); Eosinophils % (A) 2.7 %; HCT 39.4 % (37.2-46.3); HGB 13.4 g/dL (12.0-15.0); Lymphocytes # (A) 1.12 X 10*3/uL (0.90-5.00); Lymphocytes % (A) 17.8 %; MCV 85.3 FL (80.0-97.0); Mean Platelet Volume 9.8 FL (9.5-12.2); Monocytes # (A) 0.58 X 10*3/uL (0.20-1.00); Monocytes % (A) 9.2 %; NRBC Per 100 WBC 0 X 10*3/uL (0.00-0.01); Neutrophils # (A) 4.36 X 10*3/uL (1.80-7.70); Neutrophils % (A) 69.2 %; Platelet Count 234 X 10*3/uL (140-440); RBC 4.62 X 10*6/uL (4.10-5.20); RDW 12.6 % (11.5-14.5)
[2023-11-14 15:37] LABS: Chol/HDL Ratio 4.36 Ratio; Creatine Kinase 80 U/L (26-186); LDL Cholesterol,Calculated 92.7 mg/dL (0.0-131.0); Magnesium 1.9 mg/dL (1.5-2.4)
[2023-11-14 15:38] LABS: % Iron Saturation 18.08 (12.00-45.00); ALT 109 U/L (8-44); AST 57 U/L (13-35); Albumin 4.3 g/dL (3.8-4.9); Albumin/Globulin Ratio 1.95 Ratio (1.60-3.17); Alkaline Phosphatase 51 U/L (41-126); BUN/Creat Ratio 14.83 Ratio (12.00-20.00); Blood Urea Nitrogen 8.9 mg/dL (9.0-27.0); C Reactive Protein <0.30 mg/dL (0.00-0.80); Calcium 9.4 mg/dL (8.7-10.3); Chloride 102 mmol/L (96-109); Globulin 2.2 g/dL (1.6-3.3); Glucose 128 mg/dL (70-110); Iron 66 UG/DL (50-170); Phosphorus 2.8 mg/dL (2.4-5.1); Sodium 139 mmol/L (135-145); Total Bilirubin 0.4 mg/dL (0.3-1.2); Total Iron Binding Capacity 365 UG/DL (228-460); Total Protein 6.5 g/dL (6.2-8.2)
[2023-11-14 15:56] LABS: Erythrocyte Sedimentation Rate 19 mm/Hr (0-20)
== END | disposition home or self-care (01) ==
LOC: LABWHC1 07:11
PROVIDERS: ATTEND Internal Medicine
DX: Z00.00 Encounter for general adult medical examination without abnormal findings (principal); I10 Essential (primary) hypertension; D64.9 Anemia, unspecified; E87.8 Other disorders of electrolyte and fluid balance, not elsewhere classified; E55.9 Vitamin D deficiency, unspecified; E78.5 Hyperlipidemia, unspecified
CPT/HCPCS: 36415; 80053; 80061; 82306; 82550; 82728; 83540; 83550; 83735; 84100; 84443; 85025; 85652; 86140

== ENCOUNTER → 2023-12-17 | Outpatient (CLI) | payer OTHER ==
[2023-12-17 11:11] LABS: ALT 153 U/L (8-44); AST 82 U/L (13-35); Albumin 4.6 g/dL (3.8-4.9); Alkaline Phosphatase 50 U/L (41-126); Bilirubin, Conjugated <0.20 mg/dL (0.20-0.40); Bilirubin,Unconjugated >0.40 mg/dL (0.20-1.00); Globulin 2.3 g/dL (1.6-3.3); Glucose 127 mg/dL (70-110); Total Bilirubin 0.6 mg/dL (0.3-1.2); Total Protein 6.9 g/dL (6.2-8.2)
== END | disposition home or self-care (01) ==
LOC: LABWHC1 07:30
PROVIDERS: ATTEND Internal Medicine
DX: R73.9 Hyperglycemia, unspecified (principal); R74.8 Abnormal levels of other serum enzymes
CPT/HCPCS: 36415; 80076; 82947; 83036

== ENCOUNTER → 2024-01-14 | Outpatient (CLI) | payer OTHER ==
--- NOTE | 2024-01-14 08:00 | US ---
EXAMINATION TYPE: US abdomen complete DATE OF EXAM: 01/14/2024 COMPARISON: NONE CLINICAL INDICATION: Female, 43 years old with history of R74.8 ABNORMAL LEVELS OF OTHER SERUM ENZYME S; Abnormal liver enzymes. TECHNIQUE: Multiple sonographic images of the abdomen are obtained. FINDINGS: EXAM MEASUREMENTS: Liver Length: 15.8 cm Gallbladder Wall: 0.18 cm CBD: 0.41 cm Spleen: 10.2 cm Right Kidney: 10.7 x 5.4 x 4.3 cm Left Kidney: 10.9 x 5.4 x 5.9 cm [employer] NOTES: Limited due to gas Pancreas: Body and tail were not visualized. Liver: Appears very heterogeneous with increased echogenicity. Hypoechoic, indistinct area seen ad jacent to the gallbladder: 2.2 x 1.7 x 0.5 cm, possible focal fatty sparing. Gallbladder: Appears wnl Evidence for sonographic Roman's sign: No CBD: Appears wnl Spleen: Appears wnl Right Kidney: No hydronephrosis or masses seen Left Kidney: No hydronephrosis or masses seen Upper IVC: Appears wnl Abd Aorta: Appears wnl IMPRESSION: 1. No evidence for acute process. 2. Hepatic steatosis with focal fatty sparing.
== END | disposition home or self-care (01) ==
LOC: RADUSWWP 06:43
PROVIDERS: ATTEND Internal Medicine
DX: K76.0 Fatty (change of) liver, not elsewhere classified (principal); R74.8 Abnormal levels of other serum enzymes
CPT/HCPCS: 76700

== ENCOUNTER → 2024-04-07 | Outpatient (CLI) | payer OTHER ==
--- NOTE | 2024-04-07 08:27 | MM ---
Reason for Exam: Follow-up at short interval from prior study. Last screening mammogram was performed 7 month(s) ago. Patient History: Menarche at age 11. Patient has no children. Patient used Hormonal Contraceptives for 2 years. Paternal grandmother had breast cancer, age 60. Paternal aunt had breast cancer at or over age 50. Risk Values: Yareli 5 year model risk: 0.9%. NCI Lifetime model risk: 10.6%. Prior Study Comparison: 09/06/2022 Bilateral MG screening mammo w CAD, [facility]. 09/19/2023 Bilateral MG screening mammo w CAD, [facility]. 10/03/2023 Right MG 3D work up w/cad RT, [facility]. Tissue Density: Right: The breasts are heterogeneously dense, which may obscure small masses. Findings: Analyzed By CAD. Mass density is noted upper outer quadrant right breast 7.5 cm from the nipple measuring 1.6 cm. Ultrasound is advised. Overall Assessment: Incomplete: need additional imaging evaluation, BI-RAD 0 Management: Diagnostic Breast Ultrasound of the right breast. . Results were given to the patient verbally at the time of exam. Patient should continue monthly self-breast exams. A clinical breast exam by your physician is recommended on an annual basis. This exam should not preclude additional follow-up of suspicious palpable abnormalities. Note on Yareli scores and lifetime risk: 1. A Yareli score greater than 3% is considered moderate risk. If this is the case, consider specialist referral to assess eligibility for a risk reducing agent. 2. If overall lifetime risk for the development of breast cancer is 20% or higher, the patient may qualify for future screening with alternating mammogram and breast MRI. Electronically signed and approved by: Abhinav Holder M.D. Radiologis
--- NOTE | 2024-04-07 08:53 | USB ---
Reason for Exam: Follow-up at short interval from prior study. Patient History: Menarche at age 11. Patient has no children. Patient used Hormonal Contraceptives for 2 years. Paternal grandmother had breast cancer, age 60. Paternal aunt had breast cancer at or over age 50. Risk Values: Yareli 5 year model risk: 0.9%. NCI Lifetime model risk: 10.6%. Technique: Method: Targeted. Prior Study Comparison: 09/06/2022 Bilateral MG screening mammo w CAD, [facility]. 09/19/2023 Bilateral MG screening mammo w CAD, [facility]. 10/03/2023 Right MG 3D work up w/cad RT, [facility]. Findings: The upper outer quadrant of the right breast, the axilla of the right breast and the retroareolar of the right breast were scanned. Stable simple cyst with small adjacent component measuring 1.2 x 0.9 cm versus 1.2 x 0.9 cm previously. There is no evidence for solid mass. Right axillary lymph node identified.. Overall Assessment: Benign, BI-RAD 2 Management: Screening Mammogram of both breasts in 6 months. A clinical breast exam by your physician is recommended on an annual basis and results should be correlated with mammographic findings. This exam should not preclude additional follow-up of suspicious palpable abnormalities. Results were given to the patient verbally at the time of exam. Electronically signed and approved by: Abhinav Holder M.D. Radiologis
== END | disposition home or self-care (01) ==
LOC: RADMAMWWP 07:57
PROVIDERS: ATTEND Internal Medicine
DX: R92.331 Mammographic heterogeneous density, right breast (principal); Z80.3 Family history of malignant neoplasm of breast
CPT/HCPCS: 77061; 77065

== ENCOUNTER → 2024-04-21 | Outpatient (CLI) | payer OTHER ==
[2024-04-21 10:52] LABS: ALT 36 U/L (8-44); AST 21 U/L (13-35); BUN/Creat Ratio 22.17 Ratio (12.00-20.00); Blood Urea Nitrogen 13.3 mg/dL (9.0-27.0); Calcium 9.1 mg/dL (8.7-10.3); Carbon Dioxide 25.4 mmol/L (21.6-31.8); Chloride 104 mmol/L (96-109); Glucose 120 mg/dL (70-110); Sodium 141 mmol/L (135-145)
== END | disposition home or self-care (01) ==
LOC: LABWHC1 07:12
PROVIDERS: ATTEND Internal Medicine
DX: E87.8 Other disorders of electrolyte and fluid balance, not elsewhere classified (principal); K75.9 Inflammatory liver disease, unspecified; K76.0 Fatty (change of) liver, not elsewhere classified; E11.65 Type 2 diabetes mellitus with hyperglycemia
CPT/HCPCS: 36415; 80048; 83036; 84450; 84460

== ENCOUNTER → 2024-10-01 | Outpatient (CLI) | payer OTHER ==
--- NOTE | 2024-10-01 13:36 | XR ---
EXAMINATION TYPE: XR chest 2V DATE OF EXAM: 10/01/2024 12:52 PM COMPARISON: 02/26/2023 CLINICAL INDICATION: Female, 43 years old with history of R05.9 COUGH, dry cough x4 weeks. TECHNIQUE: XR chest 2V view(s) obtained. FINDINGS: The heart size is normal. The pulmonary vasculature is normal. The lungs are clear. IMPRESSION: 1. No acute pulmonary process. [facility], Workstation: [facility], 10/01/2024 1:33 PM
[2024-10-01 15:19] LABS: Basophils # (A) 0.06 X 10*3/uL (0.00-0.10); Basophils % (A) 0.7 %; Eosinophils # (A) 0.22 X 10*3/uL (0.04-0.35); Eosinophils % (A) 2.6 %; HCT 37.9 % (37.2-46.3); HGB 12.7 g/dL (12.0-15.0); Lymphocytes # (A) 1.31 X 10*3/uL (0.90-5.00); Lymphocytes % (A) 15.5 %; MCH 28.2 pg (27.0-32.0); MCHC 33.5 g/dL (32.0-37.0); Mean Platelet Volume 9.3 FL (9.5-12.2); Monocytes # (A) 0.75 X 10*3/uL (0.20-1.00); Monocytes % (A) 8.9 %; NRBC Per 100 WBC 0 X 10*3/uL (0.00-0.01); Neutrophils # (A) 6.07 X 10*3/uL (1.80-7.70); Neutrophils % (A) 71.8 %; Platelet Count 266 X 10*3/uL (140-440); RBC 4.51 X 10*6/uL (4.10-5.20); RDW 12.8 % (11.5-14.5); WBC 8.45 X 10*3/uL (4.50-10.00)
[2024-10-01 15:26] LABS: Blood Urea Nitrogen 11.2 mg/dL (9.0-27.0); Calcium 9.4 mg/dL (8.7-10.3); Carbon Dioxide 25.6 mmol/L (21.6-31.8); Chloride 100 mmol/L (96-109); Glucose 90 mg/dL (70-110); Potassium 3.8 mmol/L (3.5-5.5); Sodium 138 mmol/L (135-145)
== END | disposition home or self-care (01) ==
LOC: LABWHC1 12:07
PROVIDERS: ATTEND Internal Medicine
DX: L02.214 Cutaneous abscess of groin (principal); R05.9 Cough, unspecified
CPT/HCPCS: 36415; 71046; 80048; 85025

== ENCOUNTER → 2024-10-15 | Outpatient (CLI) | payer OTHER ==
--- NOTE | 2024-10-15 14:38 | US ---
EXAMINATION TYPE: US axilla LT DATE OF EXAM: 10/15/2024 COMPARISON: NONE CLINICAL INDICATION: Female, 43 years old with history of L72.0 EPIDERMAL CYST; Epidermal cyst x a fe w weeks. TECHNIQUE: Scanned left axilla at palpable area of concern. FINDINGS: *Hypoechoic area with hyperechoic center seen left axilla: 2.1 x 1.8 x 1.4 cm. Cortex dhiraj ures 7.5 mm. Vessels noted adjacent to area. IMPRESSION: Enlarged lesion in the left axillary palpable abnormality with thickened cortex. Incomple te mammographic workup recommended. Findings concerning given increased cortical thickness which can be seen in setting of malignancy or infection. [facility], , 10/15/2024 2:36 PM
== END | disposition home or self-care (01) ==
LOC: RADUSWWP 14:07
PROVIDERS: ATTEND Internal Medicine
DX: L72.0 Epidermal cyst (principal)

== ENCOUNTER → 2024-10-27 | Outpatient (CLI) | payer OTHER ==
--- NOTE | 2024-10-27 14:45 | MM ---
Reason for Exam: Clinical finding. Last mammogram was performed 1 year(s) and 1 month(s) ago. Patient History: Menarche at age 11. Patient has no children. Patient used Hormonal Contraceptives for 2 years. Paternal grandmother had breast cancer, age 60. Paternal aunt had breast cancer at or over age 50. Risk Values: Yareli 5 year model risk: 0.9%. NCI Lifetime model risk: 10.6%. Tissue Density: The breasts are heterogeneously dense, which may obscure small masses. Findings: Analyzed By CAD. The pattern is symmetrical. There may be a small nodule in the outer aspect left breast is dispersed on compression. No suspicious abnormality in the medial lateral view. No significant interval change is evident. The rounded density in the upper outer right breast is stable. No discrete abnormality within the left breast is identified. The axillary lesion previously reported by ultrasound is not within the [id number] on the mammogram. Clinical management recommended. No suspicious groups of microcalcifications, spiculated or lobular masses, architectural distortion or other secondary signs of malignancy are mammographically apparent. Overall Assessment: Benign, BI-RAD 2 Management: Screening Mammogram of both breasts in 1 year. Clinical Management of both breasts. A negative mammogram report should not preclude additional follow up of suspicious palpable abnormalities. Patient should continue monthly self breast exam. A clinical breast exam by your physician is recommended on an annual basis and results should be correlated with mammographic findings. Note on Yareli scores and lifetime risk: 1. A Yareli score greater than 3% is considered moderate risk. If this is the case, consider specialist referral to assess eligibility for a risk reducing agent. 2. If overall lifetime risk for the development of breast cancer is 20% or higher, the patient may qualify for future screening with alternating mammogram and breast MRI. [facility], , 10/27/2024 9:41 AM . Electronically signed and approved by: Sean Kennedy D.O. Radiologis
== END | disposition home or self-care (01) ==
LOC: RADMAMWWP 08:59
PROVIDERS: ATTEND Internal Medicine
DX: R92.333 Mammographic heterogeneous density, bilateral breasts (principal); Z80.3 Family history of malignant neoplasm of breast
CPT/HCPCS: 77062; 77066

== ENCOUNTER → 2024-11-17 | Outpatient (CLI) | payer OTHER ==
--- NOTE | 2024-11-17 10:53 | US ---
EXAMINATION TYPE: US axilla LT DATE OF EXAM: 11/17/2024 COMPARISON: 10/05/24 CLINICAL INDICATION: Female, 43 years old with history of L72.0 ENLARGED LYMPH NODE; enlarged lymph n ode. Pt states this area is no longer painful and feels like the lump is smaller. TECHNIQUE: Left axilla scanned FINDINGS: Hypoechoic area with fatty hilum seen measuring 1.6 x 1.5 x 0.9 cm. Previously measured 2. 1 x 1.8 x 1.4 cm There is vascularity seen inside. IMPRESSION: Slight interval reduction in size of the area of lymphadenopathy within the left axilla. [facility], , 11/17/2024 10:50 AM
== END | disposition home or self-care (01) ==
LOC: RADUSWWP 08:42
PROVIDERS: ATTEND Internal Medicine
DX: L72.0 Epidermal cyst (principal); R59.0 Localized enlarged lymph nodes

== ENCOUNTER → 2025-04-06 | Outpatient (CLI) | payer OTHER ==
--- NOTE | 2025-04-06 16:24 | XR ---
EXAMINATION TYPE: XR shoulder complete LT DATE OF EXAM: 04/06/2025 2:40 PM COMPARISON: None. CLINICAL INDICATION: Female, 44 years old with history of M75.52 BURSITIS OF LEFT SHOULDER, Pain TECHNIQUE: XR shoulder complete LT view(s) obtained. FINDINGS: The humeral head articulates with the glenoid. The acromio-clavicular junction is normal. No acute fractures or dislocations are evident. A follow up study can be performed 7-10 days from acute trauma for continued pain. MRI can be perfor med if soft tissue evaluation would be of benefit. IMPRESSION: 1. No acute osseous left shoulder abnormality. [facility], , 04/06/2025 4:22 PM
== END | disposition home or self-care (01) ==
LOC: RADXRMAIN 14:22
PROVIDERS: ATTEND Internal Medicine
DX: M75.52 Bursitis of left shoulder (principal)